=== PATIENT | male | born 1985 | race African-American/Black ===

== ENCOUNTER 2018-09-24 05:43 | Emergency (ER) | payer SELFPAY ==
[~2018-09-24] VITALS: Ht 188 cm; Wt 156.9 kg
[~2018-09-24 05:43] MED LIST: ORE25
[2018-09-24 05:48] VITALS: BP 153/98
--- NOTE | 2018-09-24 06:00 | NUR ---
PT PRESENTS TO ED WITH C/O LLQ PAIN RADIATING TO BACK WITH DECREASED APPETITE. BOWEL SOUNDS ACTIVE, ABDOMEN SOFT NON-TENDER. PT DENIES N/V/D. PT PLACED INTO BED, PENDING MD STEVE. PMH--DENIES RX--DENIES
[2018-09-24] MEDS ORDERED: NACL 0.9% 1,000 ML IV ONE (06:05)
[2018-09-24] MEDS ORDERED: KETOROLAC 30 MG/ML VIAL IVP ONE (06:10)
--- NOTE | 2018-09-24 06:12 | NUR ---
PT TO CT VIA WC
[2018-09-24 06:20] LABS: BASOPHILS % (AUTO) 0.6 % (0.0-2.0); EOSINOPHILS % (AUTO) 0.7 % (0.0-4.0); HEMOGLOBIN 14.6 g/dL (12.0-18.0); LYMPHOCYTES # (AUTO) 1.4 K/uL (2.0-11.5); LYMPHOCYTES % (AUTO) 23.2 % (20.5-51.1); MEAN CORPUSCULAR HEMOGLOBIN 29 pg (27-31); MEAN CORPUSCULAR HGB CONC 33 g/dL (33-37); MEAN CORPUSCULAR VOLUME 86.6 fL (80-94); MONOCYTES # (AUTO) 0.5 K/uL (0.8-1.0); MONOCYTES % (AUTO) 7.8 % (1.7-9.3); NEUTROPHILS # (AUTO) 4.1 K/uL (1.8-7.7); NEUTROPHILS % (AUTO) 67.7 % (42.2-75.2); PLATELET COUNT (AUTO) 290 K/uL (140-450); RED BLOOD CELL COUNT(AUTO) 5.08 MIL/uL (4.20-6.10); RED CELL DISTRIBUTION WIDTH 14.2 % (11.6-13.7); WHITE BLOOD COUNT (AUTO) 6.1 K/uL (4.8-10.8)
--- NOTE | 2018-09-24 06:21 | NUR ---
PT RETURN FROM CT VIA WC.
[2018-09-24 06:26] LABS: ANION GAP 8.1 (8-16); CARBON DIOXIDE 29.4 mmol/L (21-32); CREATININE 1.3 mg/dL (0.7-1.3); POTASSIUM 3.5 mmol/L (3.5-5.1)
[2018-09-24 06:32] LABS: ALBUMIN 3.4 g/dL (3.4-5.0); TOTAL BILIRUBIN 0.5 mg/dL (0.0-1.0)
--- NOTE | 2018-09-24 07:10 | NUR ---
REPORT TO ORTIZ VAZQUEZ FOR TRANSFER OF CARE.
[2018-09-24 07:21] VITALS: BP 145/89
--- NOTE | 2018-09-24 07:23 | NUR ---
Patient discharged with v/s stable. Written and verbal after care instructions given and explained. Patient alert, oriented and verbalized understanding of instructions. Ambulatory with steady gait. All questions addressed prior to discharge. ID band removed. Patient advised to follow up with PMD. Rx of SENOKOT, MOTRIN, AND TRAMADOL given. Patient educated on indication of medication including possible reaction and side effects. Opportunity to ask questions provided and answered.
--- NOTE | 2018-09-27 06:42 | NUR ---
Late Entry. Confirmed with RN that 1000 ml 0.9NS IV was completed at 0720.
== END 2018-09-24 07:23 | disposition home or self-care (01) ==
LOC: MED 05:43
DX: M54.16 Radiculopathy, lumbar region (principal); R10.32 Left lower quadrant pain; R03.0 Elevated blood-pressure reading, without diagnosis of hypertension; Z79.899 Other long term (current) drug therapy
CPT/HCPCS: 36415; 74176; 80053; 81002; 82948; 85025; 96374; 99284; J1885; J7030

== ENCOUNTER 2018-10-17 12:49 | Emergency (ER) | payer MEDICAID ==
[~2018-10-17] VITALS: Ht 188 cm; Wt 151.0 kg
[2018-10-17 13:01] VITALS: BP 159/97
--- NOTE | 2018-10-17 13:06 | NUR ---
PATIENT TO THE LOBBY NO AVAIL. BED AT THIS TIME. NO DISTRESS
--- NOTE | 2018-10-17 13:18 | NUR ---
PT ambulated to bed 11.
--- NOTE | 2018-10-17 13:28 | NUR ---
PATIENT PRESENTS TO ED WITH AMBULATORY WITH STEADY GAIT C/O LEFT SIDED LOWER BACK PAIN EXACERBATED 3 DAYS AGO DENIES INCONTINENCE-- . DENIES N/V/D; SKIN IS PINK/WARM/DRY; AAOX4 WITH EVEN AND STEADY GAIT; LUNGS CLEAR BL; HR EVEN AND REGULAR; PT DENIES ANY FEVER, CP, SOB, OR COUGH AT THIS TIME; PATIENT STATES PAIN OF 9/10 AT THIS TIME; VSS; PATIENT POSITIONED FOR COMFORT; HOB ELEVATED; BEDRAILS UP X2; BED DOWN. ER MD MADE AWARE OF PT STATUS.
[2018-10-17] MEDS ORDERED: KETOROLAC 60 MG/2 ML VIAL IM ONE (14:20)
[2018-10-17 15:45] VITALS: BP 140/95
--- NOTE | 2018-10-17 15:45 | NUR ---
Patient discharged with v/s stable. Written and verbal after care instructions given and explained. Patient alert, oriented and verbalized understanding of instructions. Ambulatory with steady gait. All questions addressed prior to discharge. ID band removed. Patient advised to follow up with PMD. Rx of ACETAMINOPHEN 500MG AND IBUPROFEN 800MG given. Patient educated on indication of medication including possible reaction and side effects. Opportunity to ask questions provided and answered.
== END 2018-10-17 15:45 | disposition home or self-care (01) ==
LOC: MED 12:49
DX: M54.16 Radiculopathy, lumbar region (principal); Z79.899 Other long term (current) drug therapy
CPT/HCPCS: 81002; 96372; 99283; J1885

== ENCOUNTER 2018-10-22 02:28 | Emergency (ER) | payer MEDICAID ==
[~2018-10-22] VITALS: Ht 188 cm; Wt 154.2 kg
[2018-10-22 02:33] VITALS: BP 135/94
--- NOTE | 2018-10-22 02:41 | NUR ---
PT PRESENTS TO THE ED C/O LEFT LEG WEAKNESS. PT STATES TO FEELING L LEG WEAKNESS WHILE PLAYING BASKETBALL YESTERDAY. PT STATES "IT FELT LIKE IT WAS GOING TO GIVE OUT ON ME", DENIES TRAUMA. PT STATES THE ONLY PAIN HE IS HAVING IS 8/10 SHARP LOWER BACK/SCIATICA PAIN AFTER A FALL AT WORK X1 MONTH AGO. PT STATES TO TAKING TYLENOL AND IBUPROFEN AT HOME W/O RELIEF. --PEDIAL PULSES WNL BL. NO REDNESS OR SWELLING NOTED. --DENIES N/V/D, CP, SOB OR LOC. AAOX4. LUNG SOUND CLEAR BL. BOWEL SOUNDS ACTIVE X4 QUAD. DENIES FEVER, CHILLS OR COUGH. PT IN GOWN IN BED; BED IN LOWER LOCKED POSITION. ER MD MADE AWARE OF PT STATUS. PMH: DENIES RX: DENIES
--- NOTE | 2018-10-22 02:50 | NUR ---
Dr. Young evaluating patient at bedside.
[2018-10-22] MEDS ORDERED: KETOROLAC 60 MG/2 ML VIAL IM ONE ×2 (02:55→03:12)
[2018-10-22] MEDS ORDERED: DEXAMETHASONE 10 MG/ML VIAL IM ONE (02:55)
[2018-10-22] MEDS ORDERED: DEXAMETHASONE 10 MG/ML VIAL ONE (03:38)
--- NOTE | 2018-10-22 04:08 | NUR ---
PT BACK IN BED FROM CT. SAFETY PRECAUTIONS IN PLACE.
--- NOTE | 2018-10-22 05:08 | NUR ---
Patient appears to be resting comfortably in bed. Vital Signs within normal limits. Respirations even and unlabored.
--- NOTE | 2018-10-22 05:57 | NUR ---
Dr. Young re-evaluating patient at bedside.
[2018-10-22 06:06] VITALS: BP 133/88
--- NOTE | 2018-10-22 06:10 | NUR ---
Patient discharged with v/s stable. Written and verbal after care instructions given and explained. Patient alert, oriented and verbalized understanding of instructions. Ambulatory with steady gait. All questions addressed prior to discharge. ID band removed. Patient advised to follow up with PMD. Rx of ROBAXIN, GABAPENTIN given. Patient educated on indication of medication including possible reaction and side effects. Opportunity to ask questions provided and answered.
== END 2018-10-22 06:10 | disposition home or self-care (01) ==
LOC: MED 02:28
DX: M54.17 Radiculopathy, lumbosacral region (principal); Z79.899 Other long term (current) drug therapy
CPT/HCPCS: 72131; 96372; 99284; J1100; J1885

== ENCOUNTER 2020-04-16 15:37 | Emergency (ER) | payer MEDICAID ==
[~2020-04-16] VITALS: Ht 188 cm; Wt 154.2 kg
[2020-04-16 15:45] VITALS: BP 151/92
--- NOTE | 2020-04-16 15:57 | NUR ---
C/O PAIN TO RIGHT KNEE WITH ANY ACTIVITY X >1 WK DENIES RECENT INJURY---REMAINS AMBULATORTY WITH STEADY GAIT
[2020-04-16] MEDS ORDERED: KETOROLAC 60 MG/2 ML VIAL IM ONE (16:05)
--- NOTE | 2020-04-16 16:13 | NUR ---
X-RAY AT BEDSIDE
--- NOTE | 2020-04-16 16:39 | NUR ---
PTS RIGHT KNEE WAS PLACED IN A KNEE IMOBOLIZER. PTS PMSC WNL.
--- NOTE | 2020-04-16 16:41 | NUR ---
good pms post knee splint
[2020-04-16 16:44] VITALS: BP 147/90
--- NOTE | 2020-04-16 16:46 | NUR ---
Patient discharged with v/s stable. Written and verbal after care instructions given and explained. Patient alert, oriented and verbalized understanding of instructions. Ambulatory with steady gait. All questions addressed prior to discharge. ID band removed. Patient advised to follow up with PMD. Rx of IBU given. Patient educated on indication of medication including possible reaction and side effects. Opportunity to ask questions provided and answered.
== END 2020-04-16 16:46 | disposition home or self-care (01) ==
LOC: MED 15:37
DX: M25.561 Pain in right knee (principal); E66.9 Obesity, unspecified; Z68.41 Body mass index [BMI] 40.0-44.9, adult; Z79.899 Other long term (current) drug therapy
CPT/HCPCS: 29505; 73560; 96372; 99283; J1885; Q0092